=== PATIENT | female | born 1975 | race African-American/Black ===

== ENCOUNTER 2024-12-24 07:44 | Emergency (ER) | payer OTHER ==
[~2024-12-24] VITALS: Ht 162.6 cm; Wt 68.0 kg
[2024-12-24 07:48] VITALS: O2SAT 98
[2024-12-24 08:37] LABS: BASOPHILS % 0.6 % (0.0-2.0); EOSINOPHILS % 0.6 % (0.0-5.0); HEMATOCRIT. 36.3 % (36.0-48.0); HEMOGLOBIN. 12.0 g/dL (12.0-16.0); LYMPHOCYTES % 10.1 % (20.0-50.0); MEAN PLATELET VOLUME 8.2 fl (7.4-10.4); MONOCYTES % 12.1 % (2.0-8.0); NEUTROPHILS % 76.6 % (40.0-76.0); PLATELET 228 x1000/uL (130-400); RED BLOOD CELL COUNT 3.98 mill/uL (4.2-5.4); RED CELL DISTRIBUTION WIDTH 15.7 % (11.6-14.6)
[2024-12-24 08:52] LABS: CLARITY URINE CLOUDY (CLEAR); COLOR URINE ORANGE (YELLOW); GLUCOSE URINE NEGATIVE (NEGATIVE); KETONES URINE 2+ (NEGATIVE); LEUKOCYTE ESTERASE URINE 1+ (NEGATIVE); NITRITE URINE NEGATIVE (NEGATIVE); OCCULT BLOOD URINE 3+ (NEGATIVE); PH URINE 7.0 (4.5-8.0); PROTEIN URINE 1+ (NEGATIVE); SPECIFIC GRAVITY URINE 1.022 (1.005-1.030); UROBILINOGEN URINE 1.0 E.U./dL (0.2-1.0)
[2024-12-24] MEDS: SODIUM CHLORIDE 0.9% 1,000 ML IV ONE (08:52)
[2024-12-24 08:53] VITALS: TEMP 36.8
[2024-12-24 08:55] LABS: CREATININE 0.9 mg/dL (0.6-1.0); UREA NITROGEN BLOOD 15 mg/dL (9-23)
[2024-12-24 08:57] LABS: ASPARTATE AMINOTRANSFERASE 20 IU/L (<34); BILIRUBIN DIRECT 0.2 mg/dL (<=3.0); BILIRUBIN TOTAL 0.7 mg/dL (0.1-1.0); PROTEIN TOTAL 7.2 g/dL (6.0-8.3)
[2024-12-24] MEDS: ONDANSETRON HCL 4MG/2ML INJ IV ONE (09:00)
[2024-12-24] MEDS: MORPHINE SULFATE 4 MG/ML INJ (FOR IV/IM USE) IV ONE (09:01)
[2024-12-24 09:12] LABS: BACTERIA URINE 1+; RBC URINE TNTC /hpf (0-2); SQUAMOUS EPITHELIAL CELL URINE 1+ /lpf (RARE/1+); YEAST URINE NONE SEEN
[2024-12-24 09:38] VITALS: TEMP 98.24
[2024-12-24 10:01] VITALS: BP 123/83; PULSE 96; RESP 18; O2SAT 99
[2024-12-24] MEDS ORDERED: T3 PO (10:08)
[2024-12-24] MEDS ORDERED: IBUP-2029 MT (10:08)
[2024-12-24] MEDS ORDERED: NITR-87 MT (10:08)
[2024-12-24] MEDS ORDERED: IOHEXOL-300 100 ML BOTTLE ONE (10:27)
== END 2024-12-24 10:45 | disposition home or self-care (01) ==
LOC: ER 07:44
DX: R10.9 Unspecified abdominal pain (principal); I50.9 Heart failure, unspecified; Z95.2 Presence of prosthetic heart valve; Z88.0 Allergy status to penicillin; Z79.899 Other long term (current) drug therapy
CPT/HCPCS: 99285; 74177; 96374; 96361; 96375; 80076; 80048; 81003; 85025; 36415; Q9967; J2405; J2270; J7030